=== PATIENT | male | born 1990 | race Asian ===

== ENCOUNTER 2018-02-26 18:28 | Emergency (ER) | payer OTHER ==
[2018-02-26 18:59] VITALS: BP 127/58; PULSE 83; TEMP 98.1; BMI 19.1
--- NOTE | 2018-02-26 20:02 | PDOC ---
History of Present Illness - General History Source: Patient Exam Limitations: No Limitations <Rose Mary Vilchis - Last Filed: 02/26/18 20:51> <Brunilda Cornejo - Last Filed: 02/26/18 21:02> - General Chief Complaint: Palpitations Stated Complaint: CHEST PAIN Time Seen by Provider: 02/26/18 19:44 - History of Present Illness Initial Comments: 02/26/18 21:01 27 year old male with no pertinent past medical history who presents to the ED after an episode of palpitations that occurred around 7 pm tonight. Patient states he drank more coffee than usual tonight (he had 5 cups and normally drinks 3 cups) and began to have palpitations an hour later which lasted for about 25 minutes, since subsided. He denies any associated chest pain, lightheadedness, dizziness, presyncope, or syncope. He denies any recent illness , but reports having low WBC count on his last blood work in January with elevated eosinophils and B12 level. He also reports noticing some white material in the back of his throat which is PCP determined was thrush, but has not subsided for the past two months nor has he taken medications. Patient denies any recent travel. Denies any fever or chills, nausea, vomiting, diarrhea , cough, SOB, or urinary complaints. Denies sexual activity or HIV history. PMD: [facility] [employer]: denies smoking/drugs/alcohol. Drinks caffeine daily (Brunilda Cornejo) Past History - Past Medical History COPD: No - Immunization History Immunization Up to Date: Yes - Suicide/Smoking/Psychosocial Hx Smoking History: Never smoked <Rose Mary Vilchis Philipp - Last Filed: 02/26/18 20:51> <Brunilda Cornejo - Last Filed: 02/26/18 21:02> - Past Medical History Allergies/Adverse Reactions: Allergies Allergy/AdvReac Type Severity Reaction Status Date / Time No Known Allergies Allergy Verified 02/26/18 18:57 Home Medications: Ambulatory Orders NK [No Known Home Medication] 02/26/18 Review of Systems <Rose Mary Vilchis Philipp - Last Filed: 02/26/18 20:51> - Review of Systems Able to Perform ROS?: Yes All Other Systems: Reviewed and Negative <Brunilda Cornejo - Last Filed: 02/26/18 21:02> - Review of Systems Comments:: 02/26/18 21:02 GENERAL/CONSTITUTIONAL: No fever or chills. No weakness. no sweats. HEAD, EYES, EARS, NOSE AND THROAT: No change in vision or hearing. No ear pain or discharge. No sore throat or mouth pain. No difficulty swallowing. No congestion. +thrush CARDIOVASCULAR: (+) Palpitations. No chest pain, syncope or edema. RESPIRATORY: No SOB, cough, wheezing, or hemoptysis. GASTROINTESTINAL No nausea/vomiting. No diarrhea or constipation. No bloody stools. GENITOURINARY: No hematuria, dysuria, frequency, urgency or other changes. MUSCULOSKELETAL: No joint or muscle swelling or pain. No neck or back pain. SKIN: No rash or changes in skin color or lesions. NEUROLOGIC: No headache, vertigo, loss of consciousness, or change in strength/ sensation. No gait instability. HEMATOLOGIC/LYMPHATIC: No anemia, easy bruising/bleeding, or history of blood clots. ALLERGIC/IMMUNOLOGIC: No allergies All other systems reviewed and negative, or as documented in HPI. (Brunilda Cornejo) *Physical Exam <VilchisRose Marymercy Ramirezmary - Last Filed: 02/26/18 20:51> <Brunilda Cornejo - Last Filed: 02/26/18 21:02> - Vital Signs Last Vital Signs Temp Pulse Resp BP Pulse Ox 98.1 F 83 16 127/58 L 99 02/26/18 18:57 02/26/18 18:57 02/26/18 18:57 02/26/18 18:57 02/26/18 18:57 - Physical Exam Comments: 02/26/18 21:02 General: Well appearing, awake and alert, NAD. HEENT: NCAT, PERRL, EOMI, clear conjunctiva, anicteric, moist mucus membranes, thrush in posterior oropharynx, no oral lesions. Dentition normal. Neck: neck supple, FROM Resp: CTAB, normal and even respirations, no respiratory distress CVS: RRR, no murmurs, 2+ peripheral pulses throughout, no peripheral edema Abdomen: soft, NTND, no rebound or guarding. No CVAT. Back: nontender, normal inspection and ROM MSK: no edema, NOLAN x4, ROM intact. No clubbing or cyanosis. normal bulk and tone. Extremities: no calf tenderness Neuro: alert, oriented appropriately; no focal neurologic deficits Skin: warm and well perfused, cap refill <2 sec, normal color (Brunilda Cornejo ) Heart Score/ECG Review - ECG Impressions Normal ECG: Yes <MameRose Mary Philipp - Last Filed: 02/26/18 20:51> <Brunilda Cornejo - Last Filed: 02/26/18 21:02> - ECG Impressions Comment:: 02/26/18 20:52 EKG normal sinus rhythm, no interval abnormalities, narrow QRS, ST and T wave segments and morphology normal. (Rose Mary Vilchis) - Procedure Monitoring Vital Signs: Procedure Monitoring Vital Signs Temperature 98.1 F 02/26/18 18:57 Pulse Rate 83 02/26/18 18:57 Respiratory Rate 16 02/26/18 18:57 Blood Pressure 127/58 L 02/26/18 18:57 O2 Sat by Pulse Oximetry (%) 99 02/26/18 18:57 Medical Decision Making <Rose Mary Vilchis - Last Filed: 02/26/18 20:51> <Brunilda Cornejo - Last Filed: 02/26/18 21:02> - Medical Decision Making 02/26/18 20:53 hpi as documented. Vitals wnl, hemodynamically stable ECG NSR, nonischemic no symptoms now, no cp or sob. likely palpitations 2/2 increased caffeine intake today palp have subsided doubt ACS/cardiac or pulmonary - as no cp or sob nor syncope/fever or chills or infectious sx. has h/o leukopenia with predominant eosinophils and thrush x 2 months, no treatment. denies sexual activity or HIV no labs indicated, no systemic sx or infection - told to f/u PMD at [facility] for recheck and treatment rx nystatin swish and swallow for the chronic thrush x several months. pt amenable to plan, made aware of impression and plan DC in stable condition. (Rose Mary Vilchis) *DC/Admit/Observation/Transfer - Discharge Dispostion Decision to Admit order: No <Rose Mary Vilchis - Last Filed: 02/26/18 20:51> <Brunilda Cornejo - Last Filed: 02/26/18 21:02> Diagnosis at time of Disposition: Palpitations, Thrush, oral - Discharge Dispostion Disposition: HOME Condition at time of disposition: Improved - Referrals Referrals: Geo Blevins [Non Staff, Medical] - - Patient Instructions Printed Discharge Instructions: DI for Thrush, DI for Palpitations Additional Instructions: your EKG was normal sinus rhythm, no signs of heart attack you had palpitations secondary to your increased caffeine intake, avoid taking more caffeine than your body is used to if worsening symptoms such as respiratory distress, chest pain, passing out, dehydration, infection, return sooner. follow up with your [facility] doctors for your thrush and chronic leukopenia and workup you have some thrush in your mouth, rx'd nystatin swish and swallow, every 6 hours for one week. follow up with your doctor on your thrush. - Attestations Scribe Attestion: 02/26/18 21:02 Documentation prepared by Brunilda Cornejo, acting as medical insurance coder for Rose Mary Vilchis MD. (Brunilda Cornejo) Physician Attestion: 02/26/18 20:52 I, Rose Mary Vilchis MD, attest that this document has been prepared under my direction and personally reviewed by me in its entirety. I further attest, that it accurately reflects all work, treatment, procedures and medical decision -making performed by me. (Rose Mary Vilchis)
--- NOTE | 2018-02-27 18:58 | EKG ---
Test Reason : Blood Pressure : / mmHG Vent. Rate : 098 BPM Atrial Rate : 098 BPM P-R Int : 134 ms QRS Dur : 096 ms QT Int : 382 ms P-R-T Axes : 073 060 068 degrees QTc Int : 487 ms NORMAL SINUS RHYTHM POSSIBLE LEFT ATRIAL ENLARGEMENT INCOMPLETE RIGHT BUNDLE BRANCH BLOCK PROLONGED QT ABNORMAL ECG NO PREVIOUS ECGS AVAILABLE Confirmed by CHAVO IBARRA MD ([id number]) on 02/27/2018 6:58:30 PM Referred By: Confirmed By:CHAVO IBARRA MD
== END 2018-02-26 20:58 | disposition home or self-care (01) ==
LOC: JER 18:28
DX: R00.2 Palpitations (principal); B37.0 Candidal stomatitis
CPT/HCPCS: 93005; 93010; 99282-25